=== PATIENT | female | born 1955 | race Caucasian/White ===

== ENCOUNTER 2016-09-05 11:49 | Emergency (ER) | payer BC ==
[2016-09-05] MEDS ORDERED: METOCLOPRAMIDE HCL 5 MG/ML VIAL IV ONE (13:21)
[2016-09-05] MEDS ORDERED: diphenhydrAMINE HCL 50 MG/ML VIAL IV ONE (13:21)
[2016-09-05] MEDS ORDERED: KETOROLAC TROMETHAMINE 30 MG/ML VIAL IV ONE (13:21)
[2016-09-05] MEDS ORDERED: diphenhydrAMINE HCL 50 MG/ML VIAL ONE (14:11)
[2016-09-05] MEDS ORDERED: KETOROLAC TROMETHAMINE 30 MG/ML VIAL ONE ×2 (14:11→14:42)
[2016-09-05] MEDS ORDERED: METOCLOPRAMIDE HCL 5 MG/ML VIAL ONE (14:11)
--- NOTE | 2016-09-05 14:14 | ERNOTE ---
Headache ER HPI - Narrative Date of Service: 09/05/16 - General Presenting Symptoms: "migraine" Time Seen by Provider: 09/05/16 13:12 Source: patient Exam Limitations: no limitations - Immun/Allergies/Home Medications Immunizations: IMMUNIZATION HX Immunizations Up to Date Yes History of Influenza Vaccine No Hx Pneumococcal Vaccination More Information Required Allergies/Adverse Reactions: Allergies ASTRID Inhibitors Adverse Reaction (Mild, Verified 09/05/16 12:14) COUGH codeine Adverse Reaction (Mild, Verified 09/05/16 12:14) RASH Penicillins Adverse Reaction (Mild, Verified 09/05/16 12:14) RASH Home Medications: HOME MEDICATIONS Nebivolol HCl [Bystolic] 10 mg PO DAILY 06/12/13 [Last Taken 07/07/16 07:00] Losartan Potassium 100 mg PO DAILY 02/25/14 [Last Taken 07/07/16 07:00] Carisoprodol [Soma] 350 mg PO BID PRN 06/30/16 [Last Taken Unknown] HYDROcodone/ACETAMINOPHEN [[place] 5-325] 1 each PO BID PRN 06/30/16 [Last Taken Unknown] Nortriptyline HCl [Pamelor] 10 mg PO HS 06/30/16 [Last Taken Unknown] traZODone HCL [Desyrel] 50 mg PO HS 06/30/16 [Last Taken Unknown] - History of Present Illness Narrative: Chronic daily headache and severe migraine 1-2 times per week. This one has lasted four days and is fairly typical. Nausea and no vomiting. Started when she was 12 or 13 years old originally. Timing of Headache: gradual, worse Context Headache: Present: other Quality: Present: throbbing Severity Maximum: Present: moderate Severity-Currently: Present: moderate Headache frequency: Present: other Modifying Factors - (Improves): Reports: other - nothing Modifying Factors - (Worsens): Reports: movement, exposure to light Associated Symptoms: Reports: nausea Exacerbated by:: Reports: light, noise, movement, position Prior Treament: Reports: similar symptoms before Review of Systems - Review of Systems Constitutional: Present: no symptoms reported EYE: Present: no symptoms reported ENT: Present: no symptoms reported Respiratory: Present: no symptoms reported Cardiology: Present: no symptoms reported Gastrointestinal/Abdominal: Present: no symptoms reported Genitourinary: Present: no symptoms reported Musculoskeletal: Present: no symptoms reported Skin: Present: no symptoms reported Neurological: Present: See HPI Endocrine: Present: no symptoms reported Hematologic/Lymphatic: Present: no symptoms reported Psych: Present: no symptoms reported All Other Systems: All systems neg except as marked - Patient's Past Medical History Patient History - Medical: No pertinent hx, Anxiety, Headache, Kidney stone Patient History - Cardiac/Respiratory: Hypertension Patient History - Cancer: No Hx of Cancer Patient History - Surgical Procedures: Colonoscopy, Other - Family History Brother Family History - Medical: Other Family History - Cardiac/Respiratory: No pertinent hx Father Family History - Medical: , No pertinent hx Family History - Cardiac/Respiratory: Hypertension, Other Mother Family History - Medical: , No pertinent hx Family History - Cardiac/Respiratory: Hypertension, Other Sister Family History - Medical: No pertinent hx, Other Family History - Cardiac/Respiratory: No pertinent hx - Social History Living Situations: spouse Smoking Status: Never smoker Have you smoked in the past 12 months: No Do you dip or chew tobacco: No Alcohol Use: occasionally Drug Use: none Physical Exam - Physical Exam General Appearance: Present: wd/wn, alert, no apparent distress Eye Exam: Normal inspection: bilateral, PERRL: bilateral, EOMI: bilateral Ears, Nose, Throat: Present: normal ENT inspection, hearing grossly normal Neck: Present: normal inspection Respiratory: Present: no respiratory distress Cardiovascular/Chest: Present: regular rate, rhythm Gastrointestinal/Abdominal: Present: normal bowel sounds, nontender, nondistended, no organomegaly Extremity Exam: Present: normal inspection Neurological Exam: Present: alert, oriented, normal mood/affect, no motor/ sensory deficits Skin Exam: Present: normal color, warm/dry ED Progress - Vital Signs Patient's Vital Signs:: I have reviewed the patient's vital signs. Vital Signs: Vital Signs 09/05/16 12:11 Temperature 35.2 C L Pulse Rate 64 Respiratory 14 Rate Blood Pressure 153/99 O2 Sat by Pulse 100 Oximetry - Progress/Reassessment Chief Complaint: Headache Departure Clinical Impression: Migraine Qualifiers: Migraine type: without aura Status migrainosus presence: with status migrainosus Intractability: intractable Qualified Code(s): G43.011 - Migraine without aura, intractable, with status migrainosus - Departure Disposition: Home self-care Condition: Good Instructions: Migraine Headache, [id number] Additional Instructions: Followup in the office within 1-2 weeks. Referrals: Derek Pearson MD [Primary Care Provider] -
[2016-09-05 14:51] VITALS: BP 132/89
== END 2016-09-05 15:20 | disposition home or self-care (01) ==
LOC: ER 11:49
DX: G43.011 Migraine without aura, intractable, with status migrainosus (principal); F41.1 Generalized anxiety disorder; I10 Essential (primary) hypertension

== ENCOUNTER 2016-10-14 11:55 | Day surgery (SDC) | payer BC ==
[~2016-10-14 11:55] MED LIST: RINGERS SOLUTION,LACTATED 1,000 ML IV PRN
--- OUTSIDE RECORDS SUMMARY | 2016-10-14 11:59 | XMS REPORT | Continuity of Care Document ---
:1955 Author Organization [facility] ([facility]) Address [address] [place] [address] Phone [phone] Care Team Providers Name Role Phone Derek Pearson Primary Care Provider [phone] Source Comments This disclosure is being made pursuant to the Care Everywhere program, applicable federal and state laws, and may not contain all informaitonavailable regarding this patient.[facility] ([facility]) Active Allergies and Adverse Reactions Allergen Noted Date Severity Reactions Comments Penicillin 04/12/2016 Rash Current Medications Prescription Sig. Disp. Refills Start Date End Date Status acetaZOLAMIDE 250 mg 2 times daily. 1 03/26/2016 Active tablet carisoprodol 350 mg 04/07/2016 Active tablet clonazePAM 0.5 mg tablet TK 1 T PO BID 0 03/10/2016 Active HYDROcodone-acetaminophe TK 1 T PO BID 0 03/24/2016 Active n 5-325 mg per tablet PRN FOR PAIN losartan-hydrochlorothia 03/18/2016 Active zide 100-25 mg per tablet BYSTOLIC 10 mg tablet 03/18/2016 Active BOTOX 200 unit injection 03/12/2016 Active potassium chloride 10 04/07/2016 Active mEq XR tablet trihexyphenidyl 2 mg Take 0.5 270 tablet 3 06/07/2016 Active tablet tablets (1 mg total) by mouth 3 times daily. Active Problems Not on file Social History Tobacco Use Types Packs/Day Years Used Date Former Smoker Cigarettes 0.25 Smokeless Tobacco: Never Used Tobacco Cessation:Counseling Given: Yes Comments: Last Filed Vital Signs Vital Sign Reading Time Taken Blood Pressure 114/55 04/12/2016 7:44 AM CDT Pulse 72 04/12/2016 7:44 AM CDT Temperature - - Respiratory Rate - - Height 1.676 m (5' 6") 04/12/2016 7:44 AM CDT Weight 64.1 kg (141 lb 5 oz) 04/12/2016 7:44 AM CDT Body Mass Index 22.82 04/12/2016 7:44 AM CDT Oxygen Saturation - - Plan of Care Health Maintenance Due Date Last Done Comments HCV Screening 1955 Hepatitis B Vaccine (1 of 3 - Primary Series) 1955 Tdap Vaccine 1966 Lipid Disorder Screening 1973 Td Vaccine 1973 Cervical Cancer Screening 1985 Mammogram 1995 Colonoscopy 07/17/2005 Zoster Vaccine 2015 Influenza Vaccine: Seasonal (#1) 03/15/2016 Results from Last 3 Months Not on file
[2016-10-14] MEDS ORDERED: RINGERS SOLUTION,LACTATED 1,000 ML IV ONE (12:45)
[2016-10-14] MEDS ORDERED: IBUPROFEN 800 MG TABLET PO PRN (13:47)
[2016-10-14 14:41] VITALS: BP 136/72
--- NOTE | 2016-10-15 12:55 | OR ---
Operative Report - Dictated Report Narrative: Operative report: 10/14/2016 Preoperative diagnosis: postmenopausal bleeding Postoperative diagnosis: Same Procedure: Hysteroscopy, D&C Surgeon: Sylwia Marina D.O. Compensation And Benefits Advisor: OR staff Anesthesia: Local and sedation IV fluids: 150 Milliliters EBL: minimal Urine output: Not applicable Findings: atrophic lining and areas of thickened lining Drains: None Pathology: Endometrial curettings Complications: None Condition: Stable The patient was taken to the operating room. Anesthesia was found to be adequate. The patient was prepped and draped in the normal sterile fashion in the dorsal lithotomy position. A sterile speculum was then inserted into the vagina. The anterior lip of the cervix was then grasped with a single-tooth tenaculum. Local anesthetic was then injected in the cervix. The hysteroscope was then inserted into the cervix. Hydrodistention was then used to enter into the uterine cavity. The cavity was then surveyed and findings as above. the hysteroscope was then removed. The cervix was then sequentially dilated. A sharp curettage was then performed until the cry of the uterus was noted. Minimal bleeding was then noted from the cervix. Hysteroscopy was then performed and adequate curettage was noted throughout the entire cavity. The hysteroscope was then removed. The tenaculum was then removed. Hemostasis was noted. The speculum was then removed. All sponge lap and needle counts were correct 2. The patient was taken to the recovery room in stable condition.
== END 2016-10-14 11:56 | disposition home or self-care (01) ==
LOC: AMB 11:55
PROVIDERS: ATTEND Obstetrics & Gynecology Gynecologic Oncology
PROC: 0UDB8ZX Extraction of Endometrium, Via Natural or Artificial Opening Endoscopic, Diagnostic (ICD-10-PCS; principal; 2016-10-14 13:20)
DX: N95.0 Postmenopausal bleeding (principal); I10 Essential (primary) hypertension; Z87.891 Personal history of nicotine dependence; Z68.23 Body mass index [BMI] 23.0-23.9, adult